=== PATIENT | male | born 1980 | race Caucasian/White ===

== ENCOUNTER 2020-09-14 18:43 | Outpatient (CLI) | payer BC, SELFPAY ==
[2020-09-14 19:12] LABS: Post Vasectomy Sperm Presence None Seen (None Seen)
== END 2020-09-14 18:44 | disposition home or self-care (01) ==
LOC: CHSLAB 18:47
PROVIDERS: PCP Family Medicine; Visit Provider Family Medicine
DX: Z30.09 Encounter for other general counseling and advice on contraception (principal)
CPT/HCPCS: 88160; 89321